=== PATIENT | female | born 1940 | race Caucasian/White ===

== ENCOUNTER → 2017-12-03 | Outpatient (CLI) | payer MEDICARE ==
[~2017-12-03] MED LIST: ACET500; ALEN70 PO; CALCIT950 PO; CHOL10002 PO; Flomax0.4 MG PO; MECL25 PO; OXYACE5T PO
== END | disposition home or self-care (01) ==
LOC: LAB SHORT 08:17 → PLD 08:17
DX: C44.329 Squamous cell carcinoma of skin of other parts of face (principal); L85.8 Other specified epidermal thickening
CPT/HCPCS: 88305

== ENCOUNTER → 2018-01-07 | Outpatient (CLI) | payer MEDICARE | END | disposition home or self-care (01) | LOC: LAB SHORT 07:44 → PLD 07:44 | DX: L90.5 Scar conditions and fibrosis of skin (principal); L57.8 Other skin changes due to chronic exposure to nonionizing radiation | CPT/HCPCS: 88305 ==

== ENCOUNTER 2019-08-16 12:01 | Day surgery (SDC) | payer MEDICARE ==
[~2019-08-16] VITALS: Ht 167.6 cm; Wt 59.3 kg
[2019-08-16] MEDS ORDERED: ALEN70 (12:32)
[2019-08-16] MEDS ORDERED: CALCIUM CIT 311 EACH (12:33)
[2019-08-16] MEDS ORDERED: Ventolin/Prove6.7 GM (12:33)
[2019-08-16] MEDS ORDERED: ACET500 (12:34)
== END 2019-08-16 14:33 | disposition home or self-care (01) ==
LOC: ORSCSDS 12:01
PROVIDERS: Internal Medicine Gastroenterology
PROC: 0DBH8ZX Excision of Cecum, Via Natural or Artificial Opening Endoscopic, Diagnostic (ICD-10-PCS; principal; 2019-08-16 13:15)
DX: Z12.11 Encounter for screening for malignant neoplasm of colon (principal); D12.0 Benign neoplasm of cecum; K57.30 Diverticulosis of large intestine without perforation or abscess without bleeding; Z86.010 Personal history of colon polyps; Z83.71 Family history of colonic polyps; J44.9 Chronic obstructive pulmonary disease, unspecified; Z87.891 Personal history of nicotine dependence
CPT/HCPCS: 88305; J2405; J2704; J7120

== ENCOUNTER → 2020-09-25 | Outpatient (CLI) | payer MEDICARE ==
[~2020-09-25] MED LIST changes: +ALEN70; +CALCIUM CIT 311 EACH; +Ventolin/Prove6.7 GM
== END ==
LOC: PLD 14:51 → LAB SHORT 14:51
DX: D48.5 Neoplasm of uncertain behavior of skin (principal)
CPT/HCPCS: 88305

== ENCOUNTER → 2021-04-09 | Outpatient (CLI) | payer MEDICARE | END | disposition home or self-care (01) | LOC: LAB 14:55 → LAB SHORT 14:55 | DX: D04.39 Carcinoma in situ of skin of other parts of face (principal) | CPT/HCPCS: 88305 ==

== ENCOUNTER → 2021-06-07 | Outpatient (CLI) | payer MEDICARE | END | disposition home or self-care (01) | LOC: LAB SHORT 14:47 | DX: L57.0 Actinic keratosis (principal) | CPT/HCPCS: 88305 ==

== ENCOUNTER → 2022-04-15 | Outpatient (CLI) | payer MEDICARE, BC | END | disposition home or self-care (01) | LOC: LAB SHORT 14:40 → PLD 14:40 | DX: C44.319 Basal cell carcinoma of skin of other parts of face (principal) | CPT/HCPCS: 88305 ==

== ENCOUNTER → 2023-01-02 | Outpatient (CLI) | payer MEDICARE, BC | END | disposition home or self-care (01) | LOC: LAB 14:39 → LAB SHORT 14:39 | DX: S61.451A Open bite of right hand, initial encounter (principal) | CPT/HCPCS: 87070; 87075; 87205 ==

== ENCOUNTER 2024-02-11 09:24 | Day surgery (SDC) | payer MEDICARE, BC ==
[~2024-02-11] VITALS: Ht 167.6 cm; Wt 66.1 kg
[~2024-02-11 09:24] MED LIST changes: +Balanced Salt Epinephrine Irrigation Solution 500 mL IR SCH; +Lidocaine HCl/Pf 1% 5 ML VIAL ONE; +Lidocaine HCl/Pf 1% 5 ML VIAL XX SCH; +Moxifloxacin HCL 0.5 MG/0.1 ML 0.4MLSYR LEFTEYE SCH; +NS 500 ML IV ONE; +PHENYLEPHRINE\\TROPICAMIDE\\TETRACAINE OPHTHALMIC DILATING SOLN LEFTEYE PRN; +Povidone-Iodine 450 DROP/30 ML Solution LEFTEYE SCH; +TAMSULOSIN HCL0.4 M1 PO; +TRELEGY ELLIPT1 EACH IH; +Triamcinolone Inj Susp 40 MG / ML 1ML Vial INJ SCH; +Triamcinolone Inj Susp 40 MG / ML 1ML Vial ONE
[2024-02-11] MEDS ORDERED: NS 500 ML IV ONE (09:54)
[2024-02-11] MEDS ORDERED: FentaNYL Citrate 50 MCG/ML 2 ML Injection ONE (10:12)
[2024-02-11 10:52] VITALS: BP 160/66
--- NOTE | 2024-02-11 11:10 | NUR ---
02/11/24 1110 [facility] O2 >94% WHILE BREATHING NORMALLY WITH GOOD PLETH WAVE. SEE VSS.
== END 2024-02-11 11:03 | disposition home or self-care (01) ==
LOC: ORSCSDS 09:24
PROVIDERS: Ophthalmology
PROC: 08RK3JZ Replacement of Left Lens with Synthetic Substitute, Percutaneous Approach (ICD-10-PCS; principal; 2024-02-11 10:30)
DX: H25.812 Combined forms of age-related cataract, left eye (principal); H21.81 Floppy iris syndrome; Z96.1 Presence of intraocular lens; J45.909 Unspecified asthma, uncomplicated; Z79.899 Other long term (current) drug therapy
CPT/HCPCS: J2001; J3010; J3301; J7040; V2632

== ENCOUNTER 2024-10-11 09:06 | Day surgery (SDC) | payer MEDICARE, BC ==
[~2024-10-11] VITALS: Ht 167.6 cm; Wt 68.7 kg
[~2024-10-11 09:06] MED LIST changes: -Balanced Salt Epinephrine Irrigation Solution 500 mL IR SCH; +Lactated Ringer's 1,000 ML IV ONE; -Lidocaine HCl/Pf 1% 5 ML VIAL ONE; -Lidocaine HCl/Pf 1% 5 ML VIAL XX SCH; -Moxifloxacin HCL 0.5 MG/0.1 ML 0.4MLSYR LEFTEYE SCH; -NS 500 ML IV ONE; -PHENYLEPHRINE\\TROPICAMIDE\\TETRACAINE OPHTHALMIC DILATING SOLN LEFTEYE PRN; -Povidone-Iodine 450 DROP/30 ML Solution LEFTEYE SCH; -Triamcinolone Inj Susp 40 MG / ML 1ML Vial INJ SCH; -Triamcinolone Inj Susp 40 MG / ML 1ML Vial ONE; +propofoL 50 ML IV ONE
[2024-10-11] MEDS ORDERED: BENADRYL25 MG (10:11)
[2024-10-11] MEDS ORDERED: MIRALAX17 GM (10:11)
[2024-10-11] MEDS ORDERED: REFRESH RELIEVA10 M4 (10:11)
[2024-10-11] MEDS ORDERED: Ondansetron HCl 2 MG / ML 2ML Vial ONE (10:36)
[2024-10-11] MEDS ORDERED: Lactated Ringer's 1,000 ML IV ONE (10:40)
[2024-10-11] MEDS ORDERED: Glycopyrrolate 0.2 MG/ML 1MLVIAL ONE (11:16)
--- NOTE | 2024-10-11 12:09 | NUR ---
10/11/[address] NOTIFIED OF O2 SATS BETWEEN 88-95. LUNG SOUNDS WHEEZING WITH SLIGHT STIDOR. WHEEZES CLEARED WITH COUGHING. EAR LOBE PULSE OX APPLIED TO CHECK MONITORING DEVICE. INCENTIVE SPIROMETER PROVIDED AND PT DEMONSTRATED X8 SINCE WAKING UP FROM PROCEDURE. DR ESCALANTE RECOMMENDED PT USE HER PERSONAL ALBUTERAL INHALER X2. RN ASSISTED PT INTO HIGH SITTING POSITION IN THE BED. PT SELF ADMINISTERED INHALER AT 1150. DR ESCALANTE ALSO ORDERED 2L O2 VIA NASAL CANNULA AT 1150. CANULA IS ON AND RUNNING AT 2L. RN CONTINUES TO HAVE PT COUGH AND USE INCENTIVE SPIROMETER. PT SATS ARE NOW 90% ON 2L O2.
[2024-10-11 12:15] VITALS: BP 129/72
[2024-10-16] MEDS ORDERED: LOSA50 PO (11:44)
[2024-10-16] MEDS ORDERED: VISBIOME 112.51 EACH PO (11:45)
[2024-10-16] MEDS ORDERED: AMOCLA875 PO (11:46)
[2024-10-16] MEDS ORDERED: PRED20 PO (11:47)
== END 2024-10-11 12:55 | disposition home or self-care (01) ==
LOC: ORSCSDS 09:06
PROVIDERS: Specialist
PROC: 0DBE8ZX Excision of Large Intestine, Via Natural or Artificial Opening Endoscopic, Diagnostic (ICD-10-PCS; principal; 2024-10-11 10:30)
DX: R19.4 Change in bowel habit (principal); Z86.0101 Personal history of adenomatous and serrated colon polyps; K57.30 Diverticulosis of large intestine without perforation or abscess without bleeding; J44.9 Chronic obstructive pulmonary disease, unspecified; I10 Essential (primary) hypertension; K64.8 Other hemorrhoids; Z79.899 Other long term (current) drug therapy
CPT/HCPCS: 88305; J2405; J2704; J7120

== ENCOUNTER 2024-10-11 12:56 | Inpatient (IN) | payer MEDICARE, BC ==
[~2024-10-11] VITALS: Ht 167.6 cm; Wt 71.2 kg
[2024-10-16 07:50] VITALS: BP 153/94
== END 2024-10-16 14:49 | disposition home health service (06) | DRG 871 ==
LOC: ER 12:56 → PCU 17:17 → ERHOLD 17:17 → PCU 18:45 → MEDS 10-13 10:12
PROVIDERS: ADMIT Internal Medicine
DX: A41.9 Sepsis, unspecified organism (principal); J18.9 Pneumonia, unspecified organism; J69.0 Pneumonitis due to inhalation of food and vomit; J96.01 Acute respiratory failure with hypoxia; J44.1 Chronic obstructive pulmonary disease with (acute) exacerbation; E87.21 Acute metabolic acidosis; J44.0 Chronic obstructive pulmonary disease with (acute) lower respiratory infection; R65.20 Severe sepsis without septic shock; I10 Essential (primary) hypertension; S00.83XA Contusion of other part of head, initial encounter; S00.531A Contusion of lip, initial encounter; E87.6 Hypokalemia; R91.1 Solitary pulmonary nodule; Z98.49 Cataract extraction status, unspecified eye; Z98.890 Other specified postprocedural states; Z79.899 Other long term (current) drug therapy; Z79.51 Long term (current) use of inhaled steroids; Z87.891 Personal history of nicotine dependence; X58.XXXA Exposure to other specified factors, initial encounter